=== PATIENT | female | born 1945 | race Caucasian/White ===

== ENCOUNTER 2017-12-27 00:59 | Observation (INO) ==
[2017-12-27 01:32] LABS: Basophils % 0.5 %; Eosinophils # 0.1 K/mcL (0.0-0.6); Eosinophils % 1.5 %; Hematocrit 38.9 % (35.3-44.9); Hemoglobin 13.8 g/dL (11.5-15.4); Immature Granulocytes % 0.4 % (0-4); Lymphocytes # 2.9 K/mcL (0.6-4.6); Lymphocytes % 36.8 %; Mean Corpuscular HGB Conc 35.5 g/dL (31.6-35.5); Mean Corpuscular Hemoglobin 33.6 pg (28.0-33.3); Mean Corpuscular Volume 94.6 fL (83.0-100.0); Mean Platelet Volume 9.9 fL (9.4-12.4); Monocytes # 0.8 K/mcL (0.0-1.3); Monocytes % 10.1 %; Platelet Count 205 K/mcL (140-400); Red Blood Count 4.11 M/mcL (3.82-4.97); Red Cell Distribution Width 11.6 % (11.5-14.5); Segmented Neutrophils % 50.7 %
[2017-12-27 01:43] LABS: INR 0.9; Prothrombin Time 9.7 Seconds (9.4-12.1)
[2017-12-27 01:46] LABS: Activated Partial Thrombo Time 29.7 Seconds (26.0-36.0)
[2017-12-27 02:04] LABS: Thyroid Stimulating Hormone 4.267 mcIU/mL (0.340-5.600)
[2017-12-27 02:07] LABS: BUN/Creatinine Ratio 12 (6-26); Blood Urea Nitrogen 9 mg/dL (8-23); Calcium 9.8 mg/dL (8.6-10.3); Carbon Dioxide 24 mEq/L (23-29); Chloride 94 mEq/L (98-107); Glucose 113 mg/dL (70-105); Osmolality,Calculated 265 (280-300); Potassium 2.9 mEq/L (3.5-5.1); Sodium 128 mEq/L (136-145); eGFR For Non-African Americans > 60 (> 60)
[2017-12-27] MEDS ORDERED: 0.9 % Sodium Chloride 1,000 ML IVC ONE (02:17)
--- NOTE | 2017-12-27 02:46 | Emergency Department Note ---
START Narrative - START START: I examined this patient and my medical decision-making was reviewed with the Resident Physician. I agree with the documented findings, disposition and treatment plan as described except to the extent set forth below. 72 year old piyush choentes to the ED with copmalitns of elevated HR and BP and has been feeling ill for the past couple of days. Krystyna has a history fo hypokalemia and hyponatremia and has been experncing increased "top" number to 180 and "bottom" number to 70. I am unsure as to what numbers she is referring to but does wear a wrist monitor continously and has had some nausea. He is hypokalemic to 2.9 and hyponatremic to 129. WE will admit to medicine to trend and replace.
--- NOTE | 2017-12-27 04:07 | Emergency Department Note ---
Disposition Clinical Impression: Hyponatremia, Hypokalemia Disposition: Admitted As Inpatient Condition: Fair Referrals: Nicolas Perales MD [Primary Care Provider] - Forms: ED Satisfaction Letter Time of Disposition: 03:11 General Adult HPI - General Chief complaint: ED Arrhythmia/Palpitations Stated complaint: BP / HR issues Time Seen by Provider: 12/27/17 01:09 Source: patient, family Limitations: no limitations Nursing Notes Reviewed: Yes Vital Signs Reviewed: Yes - History of Present Illness HPI Narrative: Patient is a 72-year-old female who presents to [facility] ED with a chief complaint of high blood pressure. States her blood pressure was elevated with a systolic over 180 several times. She also states she was not feeling well. Hassell slightly dizzy at times. Denies any headache, visual changes, chest pain, difficulty breathing, abdominal pain, problems with urination or bowel movements. No recent medication changes. Onset (ago): hour(s) Pain Scale: 0 Improves with: nothing Worsens with: nothing Associated symptoms: Denies: chest pain, cough, fever/chills, headaches, nausea/ vomiting, shortness of breath, weakness Treatments Prior to Arrival: none - Related Data Home Medications Medication Instructions Recorded Confirmed Amlodipine [Amlodipine Besylate] 10 mg PO DAILY 02/14/16 02/14/16 Atorvastatin [Lipitor] 20 mg PO DAILY 02/14/16 02/14/16 Cholecalciferol (Vitamin D3) 2,000 unit PO DAILY 02/14/16 02/14/16 [Vitamin D3] Cyanocobalamin (Vitamin B-12) 500 mcg PO DAILY 02/14/16 02/14/16 [Vitamin B12] Metoprolol [Lopressor] 25 mg PO BID 02/14/16 02/14/16 Valsartan 160 mg PO DAILY 02/14/16 02/14/16 Allergies Allergy/AdvReac Type Severity Reaction Status Date / Time Tetracycline Allergy Rash Verified 12/27/17 01:04 All systems ED: reviewed and negative except as stated. Past Medical History - Past Medical History Attestation: Yes The following information was validated with the patient. 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 - Social History Smoking Status: Current every day smoker Smokeless Tobacco Status: No Alcohol use: Reports: heavy Drug use: Reports: none Physical Exam - General Limitations: no limitations General appearance: alert, in no apparent distress - Head Head exam: atraumatic, normocephalic, normal inspection - Eye Eye exam: Present: normal appearance, EOMI - ENT ENT exam: normal exam, normal oropharynx, mucous membranes moist - Neck Neck exam: Present: normal inspection, full ROM, trachea midline - Chest Chest inspection: Present: normal inspection, symmetric chest wall rise - Respiratory Respiratory exam: Present: normal lung sounds bilaterally - Cardiovascular Cardiovascular exam: Present: regular rate, normal rhythm, normal heart sounds - Abdominal Exam Abdominal exam: Present: soft, Non-Tender. Absent: tenderness, distention, guarding, rebound, rigidity - Extremities Exam Extremities exam: Present: normal inspection, full ROM. Absent: tenderness, pedal edema - Neurological Exam Neurological exam: Present: alert, oriented X3 - Psychiatric Psychiatric exam: Present: normal affect, normal mood - Skin Skin exam: Present: warm, dry, intact, normal color Course Course Narrative: Patient seen and examined. Concern for elevated blood pressure. Her blood pressure in the room is 160/111. Basic labs were checked. Lab showed signs of hyponatremia and hypokalemia. Potassium level is 2.9. We will replace with 40 meq oral potassium chloride. We will admit for workup for her hyponatremia and hypokalemia. Discussed with hospitalist Dr. Alfred who has accepted patient for admission. Vital Signs Temperature 97.6 F 12/27/17 01:04 Pulse Rate 102 12/27/17 01:04 Respiratory Rate 18 12/27/17 01:04 Blood Pressure 147/64 12/27/17 01:04 O2 Sat by Pulse Oximetry 93 12/27/17 01:04 Temperature 97.6 F 12/27/17 03:53 Pulse Rate 90 12/27/17 03:53 Respiratory Rate 20 12/27/17 03:53 Blood Pressure 135/68 12/27/17 03:53 O2 Sat by Pulse Oximetry 95 12/27/17 03:53 Oxygen Delivery Oxygen Delivery Room Air Medical Decision Making - Medical Records Medical records reviewed: Yes I reviewed the patient's medical records. - Lab Data Lab results reviewed: Yes I reviewed the patient's lab results. Result diagrams: 12/27/17 01:21 02/26/18 01:21 Lab Results 12/27/17 12/27/17 12/27/17 Range/Units 01:21 01:21 01:21 WBC 7.9 (4.3-11.1) K/mcL RBC 4.11 (3.82-4.97) M/mcL Hgb 13.8 (11.5-15.4) g/dL Hct 38.9 (35.3-44.9) % MCV 94.6 (83.0-100.0) fL MCH 33.6 H (28.0-33.3) pg MCHC 35.5 (31.6-35.5) g/dL RDW 11.6 (11.5-14.5) % Plt Count 205 (140-400) K/mcL MPV 9.9 (9.4-12.4) fL Immature Gran % 0.4 (0-4) % Seg Neutrophils % 50.7 % Lymphocytes % 36.8 % Monocytes % 10.1 % Eosinophils % 1.5 % Basophils % 0.5 % Neutrophils # 4.0 (1.6-8.9) K/mcL Lymphocytes # 2.9 (0.6-4.6) K/mcL Monocytes # 0.8 (0.0-1.3) K/mcL Eosinophils # 0.1 (0.0-0.6) K/mcL Basophils # 0.0 (0.0-0.2) K/mcL PT 9.7 (9.4-12.1) Seconds INR 0.9 APTT 29.7 (26.0-36.0) Seconds Sodium 128 L (136-145) mEq/L Potassium 2.9 L (3.5-5.1) mEq/L Chloride 94 L (98-107) mEq/L Carbon Dioxide 24 (23-29) mEq/L BUN 9 (8-23) mg/dL Creatinine 0.77 (0.60-1.20) mg/dL Est GFR ( Amer) > 60 (> 60) Est GFR (Non-Af Amer) > 60 (> 60) BUN/Creatinine Ratio 12 (6-26) Glucose 113 H (70-105) mg/dL Calculated Osmolality 265 L (280-300) Calcium 9.8 (8.6-10.3) mg/dL Troponin I (< 0.04) ng/mL TSH 4.267 (0.340-5.600) mcIU/mL 12/27/17 Range/Units 01:21 WBC (4.3-11.1) K/mcL RBC (3.82-4.97) M/mcL Hgb (11.5-15.4) g/dL Hct (35.3-44.9) % MCV (83.0-100.0) fL MCH (28.0-33.3) pg MCHC (31.6-35.5) g/dL RDW (11.5-14.5) % Plt Count (140-400) K/mcL MPV (9.4-12.4) fL Immature Gran % (0-4) % Seg Neutrophils % % Lymphocytes % % Monocytes % % Eosinophils % % Basophils % % Neutrophils # (1.6-8.9) K/mcL Lymphocytes # (0.6-4.6) K/mcL Monocytes # (0.0-1.3) K/mcL Eosinophils # (0.0-0.6) K/mcL Basophils # (0.0-0.2) K/mcL PT (9.4-12.1) Seconds INR APTT (26.0-36.0) Seconds Sodium (136-145) mEq/L Potassium (3.5-5.1) mEq/L Chloride (98-107) mEq/L Carbon Dioxide (23-29) mEq/L BUN (8-23) mg/dL Creatinine (0.60-1.20) mg/dL Est GFR ( Amer) (> 60) Est GFR (Non-Af Amer) (> 60) BUN/Creatinine Ratio (6-26) Glucose (70-105) mg/dL Calculated Osmolality (280-300) Calcium (8.6-10.3) mg/dL Troponin I < 0.03 (< 0.04) ng/mL TSH (0.340-5.600) mcIU/mL - Radiology Data Radiology results reviewed: Yes I reviewed the patient's radiology results. Chest X-Ray 12/27/17 01:07 IMPRESSION: COPD without acute cardiopulmonary process. D/ / Lazarus Quispe MD / Lazarus Quispe MD Interpreting Provider: Lazarus Quispe MD - EKG Data EKG #1 EKG attestation: Yes I reviewed and interpreted this EKG. EKG results narrative: EKG done at 105 shows normal sinus rhythm with a rate of 89 bpm. Frequent ectopic beats. No acute ST elevation or depression. Normal axis.
[2017-12-27] MEDS ORDERED: traMADol 50 MG TABLET PO PRN (05:03)
[2017-12-27] MEDS ORDERED: Acetaminophen 325 MG TABLET PO PRN (05:03)
[2017-12-27] MEDS ORDERED: Naloxone 0.4 MG/ML INJ IVP PRN (05:03)
[2017-12-27] MEDS: *HR* Heparin 5,000 UNIT/ML VIAL SQ SCH ×2 (05:31→17:36)
[2017-12-27] MEDS: 0.9 % Sodium Chloride w KCl 20 MEQ/1,000 ML MLS IVC SCH ×2 (05:32→21:45)
--- NOTE | 2017-12-27 05:52 | Internal Med History&Physical ---
Date of Encounter: 12/27/17 Time of Encounter: 04:35 Assessment and Plan (1) Near syncope Current visit: Yes Status: Acute 1. Will cycle troponins, EKG's. 2. Will order ECHO and Carotid Dopplers. 3. Will hold BP meds for now and monitor given current normal BP readings. Resume BP meds as appropriate. 4. Likely due to dehydration and volume depletion. (2) Hypokalemia Current visit: Yes Status: Acute 1. Patient received oral replacement in ER. 2. IVF with potassium. 3. Monitor closely and correct as needed. (3) Hyponatremia Current visit: Yes Status: Acute 1. I suspect hyponatremic dehdyration due to nausea, vomiting, and water intake. 2. Will hydrate with NS with potassium. 3. Monitor sodium closely. (4) Nausea & vomiting Current visit: No Status: Acute 1. Will hydrate with IVF. 2. Antiemetic per IV route. 3. Will add PPI for possible GERD etiology. 4. Will test for Influenza. Qualifiers: Vomiting type: unspecified Vomiting Intractability: unspecified Qualified Code(s): R11.2 - Nausea with vomiting, unspecified (5) Hypertension Current visit: Yes Status: Chronic 1. Hold BP meds since BP normal now. 2. Resume BP meds cautiously (as clinically necessary) while monitoring for syncope. Qualifiers: Hypertension type: essential hypertension Qualified Code(s): I10 - Essential (primary) hypertension (6) DVT prophylaxis Current visit: Yes Status: Acute 1. Heparin SQ. Internal Medicine - H&P: HPI Chief complaint: weakness, lightheadedness, elevated BP Admitted From: Emergency Dept Plans for Post Hospital Care: Home History of present illness: Ms. Mccoy is a 72 year old female who presents with a 5 days history of protracted nausea, vomiting, very poor PO intake, and elevated blood pressure. She came in tonight because her blood pressure was running 180s over 120s at home. She felt lightheaded and dizzy as though she was about to pass out. Workup in the ER revealed patient to be hyponatremic and hypokalemic. She was therefore admitted to hospitalist service. Upon my assessment of the patient, she appears clinically dehydrated. She states she been having the nausea and vomiting and very little oral intake for better part of a week now. She denies any fevers, chills, or night sweats. She denies any body aches or headaches. She does state her blood pressure has been running really high the last few days despite her blood pressure medications. However, by the time she arrived in the ER, her blood pressure was stable and running on the lower side now. She denies any headaches, chest pain, shortness of breath, or back aches. She denies any ill contacts with the flu or pneumonia. She denies any diuretic use or heavy alcohol use. She did state she has been drinking water exclusively the last 5 days in hopes of staying hydrated. She has been unable to ingest any other liquids or solids due to the protracted nausea and vomiting. Past Med Surg Social Fam HX - Past Medical History Attestation: Yes The following information was validated with the patient. Source: patient, old records reviewed Medical history: hyperlipidemia, hypertension Psychiatric history: no psych history - Past Surgical History Surgical History: hysterectomy - Social History Smoking Status: Current every day smoker Packs per day: 0.5 Smokeless Tobacco Status: No Alcohol use: rarely Drug use: none Occupational status: retired Current living situation: Home, With Family Activity Level: Independent ambulation Recent Out of Country Travel Within the Last 8 Weeks: No - Family History Mother Living Status: Hx Family Cardiac Disorders: Yes Father Living Status: Internal Medicine - H&P: Meds Amlodipine [Amlodipine Besylate] 10 mg PO DAILY 02/14/16 [History] Atorvastatin [Lipitor] 20 mg PO DAILY 02/14/16 [History] Cholecalciferol (Vitamin D3) [Vitamin D3] 2,000 unit PO DAILY 02/14/16 [History] Cyanocobalamin (Vitamin B-12) [Vitamin B12] 500 mcg PO DAILY 02/14/16 [History] Metoprolol [Lopressor] 25 mg PO BID 02/14/16 [History] Valsartan 160 mg PO DAILY 02/14/16 [History] 3 Allergy/AdvReac Type Severity Reaction Status Date / Time Tetracycline Allergy Rash Verified 12/27/17 01:04 - Constitutional Constitutional: malaise, no chills, no fever(s), no night sweats - EENT Eyes: no blurry vision, no change in vision Ears: no ear pain, no tinnitus Nose, mouth and throat: no nasal congestion, no nasal discharge, no sinus pressure, no sore throat - Cardiovascular Cardiovascular ROS IM: lightheadedness, palpitations, other (+near syncope), no chest pain, no dyspnea, no dyspnea on exertion, no syncope - Respiratory Respiratory: no cough, no dyspnea, no hemoptysis, no dyspnea on exertion, no wheezing, no chest congestion, no excessive phlegm production, no change in phlegm color - Gastrointestinal Gastrointestinal: nausea, vomiting, no abdominal pain, no diarrhea, no heartburn , no hematemesis, no hematochezia, no melena - Genitourinary Genitourinary: no dysuria, no flank pain, no hematuria - Musculoskeletal Musculoskeletal ROS IM: no arthralgias, no atrophy, no back pain, no myalgias - Integumentary Integumentary IM: no rash, no jaundice - Neurological Neurological ROS: dizziness, weakness, no focal weakness, no frequent falls, no headache(s), no vertigo - Psychiatric Psychiatric: no anxiety, no depression - Endocrine Endocrine IM: no polydipsia, no polyuria - Hematologic/Lymphatic Hematologic/Lymphatic: no easy bruising, no lymphadenopathy - Allergic/Immunologic Allergic/Immunologic: GI upset with certain foods (all foods), no wheezing - Constitutional Vitals: Temp Pulse Resp BP Pulse Ox 97.6 F 90 20 135/68 95 12/27/17 03:53 12/27/17 03:53 12/27/17 03:53 12/27/17 03:53 12/27/17 03:53 General appearance: Present: cooperative, A&O X 3, pleasant, underweight, answers questions appropriately Exam: looks dry - Head Head exam: Present: atraumatic, normal inspection - Eye Eye exam: Present: EOMI, PERRL. Absent: scleral icterus Pupils: Present: normal accommodation - ENT ENT exam: Present: mucous membranes dry, normal exam, normal oropharynx - Neck Neck exam general surgery: Present: full ROM, supple. Absent: tenderness, nuchal rigidity - Respiratory Respiratory exam: Present: CTAB. Absent: chest wall tenderness, rales, respiratory distress, rhonchi, wheezes - Cardiovascular Cardiovascular exam: Present: RRR, +S1, +S2. Absent: diastolic murmur, systolic murmur - GI/Abdominal GI/Abdominal exam: Present: normal bowel sounds, soft. Absent: guarding, hepatomegaly, mass, rebound, splenomegaly, tenderness - Extremities Exam Extremities exam: Present: full ROM, normal capillary refill, warm, radial pulses palpable and symmetrical. Absent: calf tenderness, joint swelling, pedal edema, tenderness - Back Exam Back exam: Absent: CVA tenderness (L), CVA tenderness (R) - Neurological Exam Neurological exam: Present: alert, CN II-XII intact, oriented X3, no focal deficits, strengths equal and symetr throughout - Psychiatric Psychiatric exam: Present: normal affect, normal mood - Skin Skin exam: Present: dry, warm. Absent: rash Additional comments: +skin tenting C/W dehydration Internal Med - H&P Results - Labs CBC & Chem 7: 12/27/17 01:21 12/27/17 01:21 Labs: EKG has not yet been done. Unable to review. - Diagnostic Studies Chest x-ray Status: image reviewed by me (negative)
[2017-12-27] MEDS ORDERED: Ondansetron 4 MG/2 ML VIAL IVP PRN (06:08)
[2017-12-27 06:49] LABS: Influenza A PCR Negative (Negative); Influenza B PCR Negative (Negative); Resp. Syncytial Virus PCR Negative (Negative)
[2017-12-27] MEDS: Cyanocobalamin (B-12) 1,000 MCG TABLET PO SCH (08:21)
[2017-12-27 08:26] LABS: Basophils % 0.5 %; Eosinophils # 0.1 K/mcL (0.0-0.6); Eosinophils % 1.1 %; Hematocrit 36.3 % (35.3-44.9); Hemoglobin 12.5 g/dL (11.5-15.4); Immature Granulocytes % 0.2 % (0-4); Lymphocytes # 1.9 K/mcL (0.6-4.6); Lymphocytes % 31.2 %; Mean Corpuscular HGB Conc 34.4 g/dL (31.6-35.5); Mean Corpuscular Hemoglobin 32.9 pg (28.0-33.3); Mean Corpuscular Volume 95.5 fL (83.0-100.0); Mean Platelet Volume 10.4 fL (9.4-12.4); Monocytes # 0.4 K/mcL (0.0-1.3); Monocytes % 6.6 %; Neutrophils # 3.7 K/mcL (1.6-8.9); Platelet Count 193 K/mcL (140-400); Red Cell Distribution Width 11.8 % (11.5-14.5); Segmented Neutrophils % 60.4 %
[2017-12-27 08:46] LABS: Alanine Aminotransferase 9 Units/L (7-52); Albumin 3.9 g/dL (3.5-5.7); Albumin/Globulin Ratio 1.5 (1.1-2.2); Alkaline Phosphatase 71 Units/L (34-104); Aspartate Amino Transferase 17 Units/L (13-39); BUN/Creatinine Ratio 11 (6-26); Bilirubin,Total 0.7 mg/dL (0.3-1.0); Blood Urea Nitrogen 7 mg/dL (8-23); Calcium 8.8 mg/dL (8.6-10.3); Carbon Dioxide 25 mEq/L (23-29); Chloride 104 mEq/L (98-107); Globulin 2.6 g/dL (2.4-3.5); Glucose 95 mg/dL (70-105); Magnesium 1.4 mg/dL (1.6-2.6); Osmolality,Calculated 276 (280-300); Potassium 3.7 mEq/L (3.5-5.1); Sodium 134 mEq/L (136-145); Total Protein 6.5 g/dL (6.4-8.9); eGFR For Non-African Americans > 60 (> 60)
[2017-12-27] MEDS: Cholecalciferol (D-3) 1,000 UNIT TABLET PO SCH (11:58)
[2017-12-27] MEDS: Pantoprazole 40 MG VIAL IVP SCH (17:36)
--- NOTE | 2017-12-27 18:06 | Event Note ---
Date of Encounter: 12/27/17 Time of Encounter: 18:03 72-year-old female was admitted with dizziness and not feeling well. Had nausea but stated that she did not have any vomiting. She has been checking her blood pressure and it has been running high and she states. Also mentioned that she could not eat because of her blood pressure being high and feeling dizzy. But in the ER, blood pressure was normal. And continued monitoring of blood pressure appears normal. She was clinically dehydrated and she has been on IV fluids since admission. Today she stated that she is feeling better. Able to keep better. But she is worried about not having her blood pressure medications. I informed her that blood pressure is normal at this time did not require any blood pressure medications. I wonder whether her blood pressure machine at home is showing falsely high readings. I requested her to bring him blood pressure monitor to compare 5 she is here. She has been feeling weak. Will request PT evaluation. In the meantime check orthostatic blood pressure. She had an echocardiogram which showed ejection fraction 50-55%. And mild diastolic dysfunction. Her sodium level was 134. She has been on IV fluids. Potassium is 3.7. Her magnesium is 1.4. Give IV magnesium 2 g and ordered by mouth magnesium oxide. Follow BMP level. Monitor for orthostatic hypotension. She appears clinically improving, possible discharge tomorrow.
[2017-12-27] MEDS: Magnesium Oxide 400 MG TABLET PO SCH (21:45)
[2017-12-28] MEDS: *HR* Heparin 5,000 UNIT/ML VIAL SQ SCH ×2 (05:09→18:25)
[2017-12-28] MEDS: Pantoprazole 40 MG VIAL IVP SCH ×2 (05:09→18:25)
[2017-12-28] MEDS: Cyanocobalamin (B-12) 1,000 MCG TABLET PO SCH (08:20)
[2017-12-28] MEDS: Magnesium Oxide 400 MG TABLET PO SCH ×2 (08:20→20:15)
[2017-12-28] MEDS: Cholecalciferol (D-3) 1,000 UNIT TABLET PO SCH (08:20)
[2017-12-28 09:46] LABS: Calcium 8.9 mg/dL (8.6-10.3); Carbon Dioxide 22 mEq/L (23-29); Chloride 105 mEq/L (98-107); Potassium 4.2 mEq/L (3.5-5.1); Sodium 133 mEq/L (136-145)
[2017-12-28 09:52] LABS: BUN/Creatinine Ratio 13 (6-26); Blood Urea Nitrogen 9 mg/dL (8-23); Glucose 151 mg/dL (70-105); Osmolality,Calculated 278 (280-300); eGFR For Non-African Americans > 60 (> 60)
--- NOTE | 2017-12-28 16:17 | Discharge Summary ---
- NOTES TO OUTPATIENT PROVIDER Notes to Outpatient Provider: Pt will need BMP at follow up to reevaluate Na+ and K+. Orders not resulted at time of discharge: None Date of Encounter: 12/28/17 Time of Encounter: 14:00 - Discharge Diagnosis (1) Near syncope Priority: Primary Status: Acute Comments: Patient reports feeling lightheaded and dizzy, "I thought I was going to pass out." The patient was found to be hyponatremic and hypokalemic. She denies symptoms down states that she feels well and is ready to go home. Patient was also reporting hypertension with blood pressure 180s over 120s at home, which is the most likely cause of symptoms. Chest x-ray on admission showed COPD with acute pulmonary process. TTE showed LVEF preserved, mild LV DD, and no significant valvular dysfunction. Carotid Dopplers showed 40-59% stenosis bilateral ICAs. She has had multiple sets of orthostatic vital signs with one set being positive at noon today. We will continue to monitor orthostatics overnight and reassess tomorrow. Patient has been normotensive with her blood pressure being held until this evening where blood pressure slightly above recommend a goal of 150 over 80s. I have restarted her normal by mouth medications. Continue telemetry Continue orthostatic vital signs TID (2) Hypokalemia Priority: Secondary Status: Resolved Comments: Patient reports dizziness and nausea without vomiting for one week prior to admission. Patient reports decreased by mouth intake, most likely cause for electrolyte imbalance. Resolved. (3) Hyponatremia Priority: Secondary Status: Acute Comments: Plan as above. Patient received 2 L of IV 0.9 normal saline with 20 of K. We will recheck labs in the morning. (4) Nausea & vomiting Priority: Secondary Status: Ruled-out Comments: Patient reports that she does not ever have any nausea and vomiting, cannot attribute hypokalemia and hyponatremia to fluid losses. Most likely due to poor po intake due to nausea and dilution due to only drinking water for approximately 1 week. Potassium replenished, sodium remains mildly decreased, will check level again in the a.m. Qualifiers: Vomiting type: unspecified Vomiting Intractability: unspecified Qualified Code(s): R11.2 - Nausea with vomiting, unspecified (5) DVT prophylaxis Priority: Secondary Status: Acute Comments: Heparin subcutaneous twice daily. (6) Hypertension Priority: Secondary Status: Chronic Comments: Blood pressure has been well controlled during this admission. Home medications have been restarted, we will continue to monitor prior to discharging patient. Qualifiers: Hypertension type: essential hypertension Qualified Code(s): I10 - Essential (primary) hypertension Hospital course: Ms. Mccoy is a 72 year old female with past medical history of colitis, hypertension, hyperlipidemia, anemia. She presented to the emergency department with lightheadedness dizziness, near syncope. She reports one-week history of nausea and lightheadedness without any vomiting. Patient was found to have electrolyte imbalance which was corrected prior to discharge. Her blood pressure medications were stopped temporarily she remained normotensive, orthostatic vital signs were negative. Home medications were restarted and she was monitored overnight for changes and/or hypertension. Labs are stable and within normal limits, vital signs are stable and within normal limits. Patient is appropriate for discharge. Discharge discussed with: patient, family - Time Spent with Patient Total time spent providing and/or coordinating discharge services: Less than 30 minutes - Discharge Medications Home Medications: Amlodipine [Amlodipine Besylate] 10 mg PO DAILY 02/14/16 [History] Atorvastatin [Lipitor] 20 mg PO DAILY 02/14/16 [History] Cholecalciferol (Vitamin D3) [Vitamin D3] 2,000 unit PO DAILY 02/14/16 [History] Cyanocobalamin (Vitamin B-12) [Vitamin B12] 500 mcg PO DAILY 02/14/16 [History] Metoprolol [Lopressor] 25 mg PO BID 02/14/16 [History] Valsartan 160 mg PO DAILY 02/14/16 [History] Albuterol Sulfate [Albuterol Inhaler] 1 puff IH AD 12/27/17 [History] Allergies/Adverse Reactions: 3 Allergy/AdvReac Type Severity Reaction Status Date / Time Tetracycline Allergy Rash Verified 12/27/17 01:04 Date of admission: 12/27/17 02:55 Primary care physician: Nicolas Perales MD Discharging clinician: Ariane Brooks Anticipated date of discharge: 12/28/17 - Constitutional Vitals: Temp Pulse Resp BP Pulse Ox 98.0 F 80 16 150/80 92 12/28/17 14:52 12/28/17 14:52 12/28/17 14:52 12/28/17 14:52 12/28/17 14:52 General appearance: Present: cooperative, A&O X 3, pleasant, no acute distress, underweight, answers questions appropriately - Head Head exam: Present: atraumatic, normal inspection, normocephalic - Eye Eye exam: Present: normal appearance, conjuntiva pink, sclera anicteric - Neck Neck exam general surgery: Present: normal inspection, supple, trachea midline. Absent: lymphadenopathy - Respiratory Respiratory exam: Present: CTAB. Absent: accessory muscle use, chest wall tenderness, rales, respiratory distress, rhonchi, wheezes - Cardiovascular Cardiovascular exam: Present: RRR, +S1, +S2. Absent: diastolic murmur, gallop, rubs, systolic murmur - GI/Abdominal GI/Abdominal exam: Present: normal bowel sounds, soft, no peritoneal signs. Absent: distended, hepatomegaly, tenderness - Extremities Exam Extremities exam: Present: normal capillary refill, normal inspection, warm, radial pulses palpable and symmetrical. Absent: calf tenderness, cyanotic, pedal edema, tenderness - Neurological Exam Neurological exam: Present: alert, oriented X3, no focal deficits, strengths equal and symetr throughout. Absent: facial droop, speech deficit - Skin Skin exam: Present: dry, intact, normal color, warm. Absent: rash - Patient Status Disposition: Home, Self-Care Condition: Good Functional capacity at discharge: independent ambulation Overall status at discharge: patient is progressing back to baseline - Discharge Instructions Follow Up With: Nicolas Perales MD [Primary Care Provider] - Forms: ED Satisfaction Letter Additional Instructions: Please follow up with your primary care provider in the next 7-10 days for recheck. Resume your normal home medications. Resume your normal activities and diet as tolerated. Please return to the emergency department as needed for any other problems or concerns, or if your symptoms return or worsen. - Diet and Activity Activity: increase activity as tolerated Diet: low fat, low cholesterol, low salt diet
--- NOTE | 2017-12-28 18:43 | Electrocardiograph Report ---
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
[2017-12-29] MEDS: *HR* Heparin 5,000 UNIT/ML VIAL SQ SCH (05:40)
[2017-12-29] MEDS: Pantoprazole 40 MG VIAL IVP SCH (05:40)
[2017-12-29 08:24] LABS: Carbon Dioxide 26 mEq/L (23-29); Chloride 101 mEq/L (98-107); Potassium 4.4 mEq/L (3.5-5.1); Sodium 131 mEq/L (136-145)
[2017-12-29 08:29] LABS: BUN/Creatinine Ratio 28 (6-26); Blood Urea Nitrogen 22 mg/dL (8-23); Glucose 106 mg/dL (70-105); eGFR For Non-African Americans > 60 (> 60)
[2017-12-29 08:30] LABS: Osmolality,Calculated 276 (280-300)
[2017-12-29] MEDS ORDERED: amLODIPine 5 MG TABLET PO SCH (09:00)
[2017-12-29] MEDS ORDERED: Valsartan 160 MG TABLET PO SCH (09:00)
[2017-12-29] MEDS: Cholecalciferol (D-3) 1,000 UNIT TABLET PO SCH (10:17)
[2017-12-29] MEDS: Cyanocobalamin (B-12) 1,000 MCG TABLET PO SCH (10:17)
[2017-12-29] MEDS: Magnesium Oxide 400 MG TABLET PO SCH (10:17)
[2017-12-29 11:35] VITALS: BP 152/68
--- NOTE | 2017-12-29 12:16 | Internal Med Progress Note ---
Date of Encounter: 12/29/17 Time of Encounter: 11:10 - Assessment and plan (1) Near syncope Current Visit: Yes Status: Acute Assessment and plan: Pt denies symptoms down states that she feels well and is ready to go home. Patient reported hypertension with blood pressure 180s over 120s at home, which is the most likely cause of symptoms. Chest x-ray on admission showed COPD with acute pulmonary process. TTE showed LVEF preserved, mild LV DD, and no significant valvular dysfunction. Carotid Dopplers showed 40-59% stenosis bilateral ICAs. She has had multiple sets of orthostatic vital signs with one set being positive at noon today. BP meds restarted and pt tolerated them well, BP WNL. Pt denies any symptoms and states that she feels well and wants to go home. (2) Hypokalemia Current Visit: Yes Status: Resolved Assessment and plan: Resolved. (3) Hyponatremia Current Visit: Yes Status: Acute Assessment and plan: Improving. Likely related to poor po intake due to nausea. Encouraged balanced diet and adequate po intake. She verbalized understanding. (4) Hypertension Current Visit: Yes Status: Chronic Assessment and plan: Chronic. Medications have been restarted and BP is well controlled.Continue medications at home. Qualifiers: Hypertension type: essential hypertension Qualified Code(s): I10 - Essential (primary) hypertension (5) DVT prophylaxis Current Visit: Yes Status: Acute Assessment and plan: Heparin SQ BID. - Time Spent With Patient less than 15 minutes - Subjective Interval history: Patient was seen and evaluated this morning at 11:10 AM. Patient denies any headache, blurred vision, no nausea or vomiting, diarrhea. Patient denies any abdominal pain, chest pain, shortness of breath. She denies any dizziness or near syncope. Patient states that she is back to her baseline and is ready to be discharged. - Constitutional Vitals: Temp Pulse Resp BP Pulse Ox 98.0 F 80 15 152/68 97 12/29/17 11:34 12/29/17 11:34 12/29/17 11:34 12/29/17 11:34 12/29/17 11:34 General appearance: Present: cooperative, A&O X 3, pleasant, no acute distress, underweight, answers questions appropriately - Head Head exam: Present: atraumatic, normal inspection, normocephalic - Eye Eye exam: Present: normal appearance, conjuntiva pink, sclera anicteric - Neck Neck exam general surgery: Present: supple, trachea midline. Absent: lymphadenopathy, tenderness - Respiratory Respiratory exam: Present: CTAB. Absent: accessory muscle use, decreased breath sounds, rales, respiratory distress, rhonchi, wheezes - Cardiovascular Cardiovascular exam: Present: RRR, +S1, +S2. Absent: diastolic murmur, gallop, rubs, systolic murmur - GI/Abdominal GI/Abdominal exam: Present: normal bowel sounds, soft, no peritoneal signs. Absent: distended, hepatomegaly, tenderness - Extremities Exam Extremities exam: Present: normal capillary refill, normal inspection, warm, radial pulses palpable and symmetrical. Absent: calf tenderness, cyanotic, pedal edema, tenderness - Neurological Exam Neurological exam: Present: alert, oriented X3, no focal deficits. Absent: facial droop, speech deficit - Skin Skin exam: Present: dry, intact, normal color, warm. Absent: rash Internal Medicine: Result - Labs CBC & Chem 7: 12/27/17 07:51 12/29/17 08:05 Labs: BMP 12/29/17 08:05 Sodium 131 L Potassium 4.4 Chloride 101 Carbon Dioxide 26 BUN 22 Creatinine 0.78 Glucose 106 H Calcium 10.0 - ABG Interpretation ABG results: PT/INR, D-dimer PT 9.7 Seconds (9.4-12.1) 12/27/17 01:21 - Impressions Impressions Head CT 12/28/17 16:41 IMPRESSION: No acute intracranial abnormality. D/ / Suzie Chan MD / Suzie Chan MD Interpreting Provider: Suzie Chan MD Consult Discharge Plan - Plan Additional Instructions: Please follow up with your primary care provider in the next 7-10 days for recheck. Resume your normal home medications. Resume your normal activities and diet as tolerated. Please return to the emergency department as needed for any other problems or concerns, or if your symptoms return or worsen. Referrals: Nicolas Perales MD [Primary Care Provider] -
--- NOTE | 2017-12-31 07:28 | Electrocardiograph Report ---
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
== END 2017-12-29 14:00 | disposition home or self-care (01) ==
LOC: EMEROO 00:59 → 3BNU 00:59
PROVIDERS: ADMIT Pediatrics; ATTEND Registered Nurse

== ENCOUNTER 2021-07-15 11:17 | Observation (INO) ==
[2021-07-15] MEDS ORDERED: *HR* Metoprolol 5 MG/5 ML VIAL IVP ONE (11:32)
[2021-07-15 12:03] LABS: Basophils % 0.2 %; Hematocrit 38.9 % (35.3-44.9); Hemoglobin 13.9 g/dL (11.5-15.4); Immature Granulocytes % 0.2 % (0-4); Lymphocytes % 22.7 %; Mean Corpuscular HGB Conc 35.7 g/dL (31.6-35.5); Mean Corpuscular Hemoglobin 33.6 pg (28.0-33.3); Mean Platelet Volume 9.2 fL (9.4-12.4); Monocytes # 0.2 K/mcL (0.0-1.3); Monocytes % 4.2 %; Neutrophils # 3.3 K/mcL (1.6-8.9); Platelet Count 245 K/mcL (140-400); Red Blood Count 4.14 M/mcL (3.82-4.97); Red Cell Distribution Width 11.2 % (11.5-14.5); Segmented Neutrophils % 72.7 %; White Blood Count 4.5 K/mcL (4.3-11.1)
[2021-07-15 12:10] LABS: Prothrombin Time 11.7 Seconds (9.4-12.1)
[2021-07-15 12:12] LABS: Activated Partial Thrombo Time 31.7 Seconds (26.0-36.0)
[2021-07-15 12:29] LABS: BUN/Creatinine Ratio 13 (6-26); Blood Urea Nitrogen 11 mg/dL (8-23); Calcium 9.2 mg/dL (8.6-10.3); Carbon Dioxide 22 mEq/L (23-29); Chloride 94 mEq/L (98-107); Glucose 137 mg/dL (70-105); Osmolality,Calculated 270 (280-300); Sodium 129 mEq/L (136-145); Troponin I < 0.03 ng/mL (< 0.04); eGFR For African Americans > 60 (> 60); eGFR For Non-African Americans > 60 (> 60)
[2021-07-15] MEDS ORDERED: 0.9 % Sodium Chloride 1,000 ML IV STA (17:10)
[2021-07-15] MEDS ORDERED: Melatonin 3 MG TABLET PO PRN (20:51)
[2021-07-15] MEDS ORDERED: Acetaminophen 325 MG TABLET PO PRN (20:51)
[2021-07-15] MEDS ORDERED: Naloxone 0.4 MG/ML INJ IVP PRN (20:51)
[2021-07-15] MEDS ORDERED: Ondansetron 4 MG/2 ML VIAL IVP PRN (20:51)
[2021-07-15] MEDS ORDERED: Perflutren Lipid Microsphere 1.3 ML in 0.9 % Sodium Chloride 8.7 ML IVP PRN (21:58)
[2021-07-15] MEDS: 0.9 % Sodium Chloride 1,000 ML IVC SCH (22:27)
[2021-07-15 23:29] LABS: Amorphous Sediment,Urine Few per hpf (None-Few); Bacteria,Urine Few per hpf (None-Few); Bilirubin,Urine Negative (Negative); Blood,Urine Negative (Negative); Clarity,Urine Clear (Clear); Color,Urine Colorless (Yellow); Glucose,Urine (UA) Normal (Normal); Ketones,Urine 20 mg/dL (Negative); Leukocyte Esterase,Urine Moderate (Negative); Nitrite,Urine Negative (Negative); PH,Urine 6.5 pH Units (5.0-8.0); Protein,Urine Negative (Neg-Trace); RBC,Urine 0-3 per hpf (0-3); Specific Gravity,Urine 1.008 (1.010-1.025); Squamous Epithelial Cell,Urine Few per hpf (None-Few); Urobilinogen,Urine Normal (Normal); WBC,Urine 15-30 per hpf (0-3)
[2021-07-15 23:55] LABS: Folate 13.4 ng/mL (3.0-16.0)
[2021-07-16] MEDS: cefTRIAXone 1,000 MG in Water for inj. (sterile) 10 ML IVP SCH ×2 (05:47→20:52)
[2021-07-16 07:54] LABS: Estimated Average Glucose 111 mg/dl; Hemoglobin A1C 5.5 %
[2021-07-16 08:04] LABS: Basophils % 0.3 %; Eosinophils % 0.1 %; Hematocrit 36.5 % (35.3-44.9); Hemoglobin 12.6 g/dL (11.5-15.4); Immature Granulocytes % 0.2 % (0-4); Lymphocytes # 2.5 K/mcL (0.6-4.6); Lymphocytes % 23.1 %; Mean Corpuscular HGB Conc 34.5 g/dL (31.6-35.5); Mean Corpuscular Hemoglobin 33.1 pg (28.0-33.3); Mean Corpuscular Volume 95.8 fL (83.0-100.0); Mean Platelet Volume 9.9 fL (9.4-12.4); Monocytes # 0.9 K/mcL (0.0-1.3); Monocytes % 8.4 %; Platelet Count 221 K/mcL (140-400); Red Blood Count 3.81 M/mcL (3.82-4.97); Red Cell Distribution Width 11.4 % (11.5-14.5); Segmented Neutrophils % 67.9 %
[2021-07-16 08:19] LABS: Alanine Aminotransferase 8 Units/L (7-52); Albumin 3.8 g/dL (3.5-5.7); Albumin/Globulin Ratio 2.1 (1.1-2.2); Alkaline Phosphatase 87 Units/L (34-104); Aspartate Amino Transferase 20 Units/L (13-39); BUN/Creatinine Ratio 15 (6-26); Bilirubin,Total 0.5 mg/dL (0.3-1.0); Blood Urea Nitrogen 11 mg/dL (8-23); Calcium 8.5 mg/dL (8.6-10.3); Carbon Dioxide 23 mEq/L (23-29); Chloride 99 mEq/L (98-107); Cholesterol 94 mg/dL (< 200); Globulin 1.8 g/dL (2.4-3.5); Glucose 79 mg/dL (70-105); HDL Cholesterol 47 mg/dL (40-59); LDL Cholesterol,Calculated 33 mg/dL (< 100); Osmolality,Calculated 272 (280-300); Potassium 3.3 mEq/L (3.5-5.1); Sodium 132 mEq/L (136-145); Total Protein 5.6 g/dL (6.4-8.9); Triglycerides 68 mg/dL (< 150); eGFR For African Americans > 60 (> 60); eGFR For Non-African Americans > 60 (> 60)
[2021-07-16 09:08] LABS: Neutrophils # 7.3 K/mcL (1.6-8.9); White Blood Count 10.7 K/mcL (4.3-11.1)
[2021-07-16] MEDS: lisinopriL 10 MG TABLET PO SCH (09:08)
[2021-07-16] MEDS: Cyanocobalamin (B-12) 1,000 MCG TABLET PO SCH (09:09)
[2021-07-16] MEDS ORDERED: 0.9 % Sodium Chloride 1,000 ML IVC SCH (09:12)
[2021-07-16 10:09] LABS: Magnesium 1.4 mg/dL (1.6-2.6)
[2021-07-16 10:12] LABS: Troponin I < 0.03 ng/mL (< 0.04)
[2021-07-16] MEDS ORDERED: Sennosides/Docusate Sodium TABLET PO ONE (11:35)
[2021-07-16] MEDS: 0.9 % Sodium Chloride 1,000 ML IVC SCH (20:05)
[2021-07-17 03:14] LABS: Basophils % 0.5 %; Eosinophils # 0.1 K/mcL (0.0-0.6); Eosinophils % 0.9 %; Hematocrit 33.5 % (35.3-44.9); Hemoglobin 11.6 g/dL (11.5-15.4); Immature Granulocytes % 0.2 % (0-4); Lymphocytes # 3.2 K/mcL (0.6-4.6); Lymphocytes % 36.2 %; Mean Corpuscular HGB Conc 34.6 g/dL (31.6-35.5); Mean Corpuscular Volume 95.4 fL (83.0-100.0); Mean Platelet Volume 9.5 fL (9.4-12.4); Monocytes # 0.9 K/mcL (0.0-1.3); Monocytes % 9.7 %; Neutrophils # 4.6 K/mcL (1.6-8.9); Platelet Count 185 K/mcL (140-400); Red Blood Count 3.51 M/mcL (3.82-4.97); Red Cell Distribution Width 11.5 % (11.5-14.5); Segmented Neutrophils % 52.5 %; White Blood Count 8.8 K/mcL (4.3-11.1)
[2021-07-17 03:34] LABS: BUN/Creatinine Ratio 20 (6-26); Blood Urea Nitrogen 11 mg/dL (8-23); Carbon Dioxide 22 mEq/L (23-29); Chloride 100 mEq/L (98-107); Glucose 91 mg/dL (70-105); Osmolality,Calculated 267 (280-300); Potassium 3.7 mEq/L (3.5-5.1); Sodium 129 mEq/L (136-145); eGFR For African Americans > 60 (> 60); eGFR For Non-African Americans > 60 (> 60)
[2021-07-17] MEDS: lisinopriL 10 MG TABLET PO SCH (08:32)
[2021-07-17] MEDS: Cyanocobalamin (B-12) 1,000 MCG TABLET PO SCH (08:32)
[2021-07-17] MEDS: cefTRIAXone 1,000 MG in Water for inj. (sterile) 10 ML IVP SCH (08:32)
[2021-07-17] MEDS: Cholecalciferol (D-3) 1,000 UNIT (25MCG) TABLET PO SCH (08:41)
[2021-07-17] MEDS ORDERED: FELODIPINE 10 MG PO SCH (09:00)
[2021-07-17] MEDS: amLODIPine 5 MG TABLET PO SCH (09:42)
[2021-07-17] MEDS ORDERED: 0.9 % Sodium Chloride 1,000 ML IVC SCH (14:45)
[2021-07-18 03:26] LABS: BUN/Creatinine Ratio 25 (6-26); Blood Urea Nitrogen 18 mg/dL (8-23); Calcium 8.3 mg/dL (8.6-10.3); Carbon Dioxide 26 mEq/L (23-29); Chloride 99 mEq/L (98-107); Glucose 100 mg/dL (70-105); Osmolality,Calculated 270 (280-300); Potassium 4.4 mEq/L (3.5-5.1); Sodium 129 mEq/L (136-145); eGFR For African Americans > 60 (> 60); eGFR For Non-African Americans > 60 (> 60)
[2021-07-18 03:29] LABS: Basophils # 0.1 K/mcL (0.0-0.2); Basophils % 0.7 %; Eosinophils # 0.1 K/mcL (0.0-0.6); Eosinophils % 1.2 %; Hematocrit 29.2 % (35.3-44.9); Hemoglobin 10.3 g/dL (11.5-15.4); Immature Granulocytes % 0.1 % (0-4); Lymphocytes # 3.2 K/mcL (0.6-4.6); Lymphocytes % 42.9 %; Mean Corpuscular HGB Conc 35.3 g/dL (31.6-35.5); Mean Corpuscular Hemoglobin 33.6 pg (28.0-33.3); Mean Corpuscular Volume 95.1 fL (83.0-100.0); Mean Platelet Volume 9.7 fL (9.4-12.4); Monocytes # 0.7 K/mcL (0.0-1.3); Monocytes % 8.8 %; Neutrophils # 3.4 K/mcL (1.6-8.9); Platelet Count 183 K/mcL (140-400); Red Blood Count 3.07 M/mcL (3.82-4.97); Red Cell Distribution Width 11.3 % (11.5-14.5); Segmented Neutrophils % 46.3 %; White Blood Count 7.4 K/mcL (4.3-11.1)
[2021-07-18 08:40] VITALS: O2SAT 97
[2021-07-18] MEDS: Cholecalciferol (D-3) 1,000 UNIT (25MCG) TABLET PO SCH (09:08)
[2021-07-18] MEDS: amLODIPine 5 MG TABLET PO SCH (09:08)
[2021-07-18] MEDS: Cyanocobalamin (B-12) 1,000 MCG TABLET PO SCH (09:09)
[2021-07-18] MEDS: lisinopriL 10 MG TABLET PO SCH (09:09)
[2021-07-18] MEDS: cefTRIAXone 1,000 MG in Water for inj. (sterile) 10 ML IVP SCH (09:09)
[2021-07-18 11:41] VITALS: BP 128/72; PULSE 67; TEMP 97.3
[2021-07-19] MEDS ORDERED: Magnesium Oxide 400 MG TABLET PO SCH (09:00)
== END 2021-07-18 16:27 | disposition home health service (06) ==
LOC: EMEROOARM 11:17 → 3ANU 11:17 → SUATTDRO 20:47 → 3ANU 21:27
PROVIDERS: ADMIT Family Medicine; ATTEND Internal Medicine